=== PATIENT | female | born 1980 | race Caucasian/White ===

== ENCOUNTER 2021-09-08 04:49 | Emergency (ER) | payer BC, MEDICAID, SELFPAY ==
[2021-09-08 05:01] VITALS: BP 147/102; PULSE 102; RESP 18; TEMP 36.8; O2SAT 99; BMI 29.9
--- NOTE | 2021-09-08 05:16 | XRR_ITS ---
PROCEDURE INFORMATION: Exam: XR Chest Exam date and time: 09/08/2021 6:11 AM Age: 41 years old Clinical indication: Pain; Chest pressure; Additional info: Cp dizzy TECHNIQUE: Imaging protocol: Radiologic exam of the chest. Views: 1 view. COMPARISON: No relevant prior studies available. FINDINGS: Lungs: The lung parenchyma is clear. Pleural spaces: No pneumothorax. No pleural effusion. Heart/Mediastinum: The cardiomediastinal silhouette is within normal limits. Bones/joints: Unremarkable. XR/XR chest 1V portable [id number] IMPRESSION: No acute cardiopulmonary abnormality.
--- NOTE | 2021-09-08 05:16 | ECG_ITS ---
[facility] Test Date: 2021-09-08 Pat Name: Sara Dempsey Department: Room: Gender: Female Safety Risk Lead: : 1980 Requested By: Riley Parr Order Number: [id number] Kacy MD: Brit Ferris M.D. Measurements Intervals Chancellor Rate: 95 P: 77 TN: 167 QRS: 55 QRSD: 81 T: 33 QT: 333 QTc: 419 Interpretive Statements SINUS RHYTHM LOW QRS VOLTAGE IN PRECORDIAL LEADS [QRS DEFLECTION < 1.0 mV IN CHEST LEADS] No previous ECG available for comparison Electronically Signed On 09-08-2021 13:00:44 CDT by Brit Ferris M.D. [email or web address]
--- NOTE | 2021-09-08 05:19 | ED_ITS ---
HPI - Chest Pain General: Chief Complaint: Chest Pain Stated Complaint: dizzy Time Seen by Provider: 09/08/21 04:59 History of Present Illness: 41-year-old female who says she has been sick on and off for about a month. She has been coughing. No sputum production. No fever. She had a coughing fit this morning, developed significant chest pain, and became dizzy. Dizziness is now resolved. She still has chest pain. MD complaint: chest pain and other Onset (ago): hour(s) Prior episodes: Yes Onset: during rest Pain location: substernal Pain radiation: none Associated symptoms: Reports dyspnea and palpitations; Deny abdominal pain, diaphoresis, fever(s), leg edema, syncope or vomiting Review of Systems Const: Denies: fever(s) or diaphoresis ENMT: Denies: throat pain Card: Reports: chest pain and palpitations; Denies: syncope Resp: Reports: dyspnea GI: Denies: abdominal pain or vomiting Skin/Breast: Denies: rash Neuro: Reports: dizziness; Denies: headache(s) [facility] ED Female Reproductive History: Date of last menstrual period: 09/01/21 Physical Exam Const: COMMON NORMALS: no acute distress GENERAL APPEARANCE: cooperative and ill appearing HENMT: COMMON NORMALS: normocephalic, atraumatic and Normal external nose present HEAD & SCALP: normocephalic and atraumatic FACE & SINUS: normal facial exam and face symmetric NOSE: Normal external nose present and Normal nares present Eye: COMMON NORMALS: Equal, round and reactive pupils present and EOMs intact bilaterally PUPIL: Yes Equal, round and reactive pupils present Neck/C-Spine: GENERAL: Yes trachea midline Chest: CHEST: Yes Symmetrical chest wall rise Resp: COMMON NORMALS: normal respiratory effort, No use of accessory muscles and clear to auscultation bilaterally AUSCULTATION: clear to auscultation bilaterally Cardio: COMMON NORMALS: regular rate and regular rhythm RATE: regular rate RHYTHM: regular rhythm GI: COMMON NORMALS: Normal to inspection, nondistended, normoactive bowel sounds present, Soft to palpation and non-tender PALPATION: Yes Soft to palpation Extremity: COMMON NORMALS: normal to inspection Neuro: GAGE COMA SCALE: document GCS findings Gage coma scale eye opening: Spontaneous Gage coma scale verbal response: Orientated Gage coma scale motor response: Obey commands [place] coma scale total score: 15 Course Vital Signs: Vital signs: Vital Signs Temperature 98.2 F 09/08/21 05:01 Pulse Rate 105 H 09/08/21 05:41 Respiratory Rate 17 09/08/21 05:41 Blood Pressure 135/93 09/08/21 05:41 Pulse Oximetry 100 09/08/21 05:41 MDM - Chest Pain Medical Decision Making 41-year-old female with a cough on and off for a month. She denies any fever. Hemoglobin is 10. White blood cell count is 8. Troponin is 6. EKG shows sinus rhythm with normal axis and intervals. There is no ST change. The patient is satting 100% on room air. She has a cough. Her dizziness is resolved. Lab Data : 09/08/21 05:13 09/08/21 05:13 Laboratory Results WBC 8.3 10^3/uL (4.0-10.0) 09/08/21 05:13 RBC 3.85 10^6/uL (4.1-5.3) L 09/08/21 05:13 Hgb 10.2 g/dL (11.5-15.3) L 09/08/21 05:13 Hct 32.2 % (37.0-47.0) L 09/08/21 05:13 MCV 83.6 fl (81-99) 09/08/21 05:13 MCH 26.5 pg (28.0-34.0) L 09/08/21 05:13 MCHC 31.7 g/dL (30.0-36.0) 09/08/21 05:13 RDW 16.4 % (12.1-15.1) H 09/08/21 05:13 Plt Count 384 10^3/cmm (130-400) 09/08/21 05:13 MPV 11.8 fL (7.4-10.4) H 09/08/21 05:13 Neut % (Auto) 61.4 % 09/08/21 05:13 Lymph % (Auto) 29.4 % 09/08/21 05:13 Mineral % (Auto) 7.2 % 09/08/21 05:13 Eos % (Auto) 1.4 % 09/08/21 05:13 Baso % (Auto) 0.4 % 09/08/21 05:13 Neut # (Auto) 5.12 10^3/uL (1.8-7.7) 09/08/21 05:13 Lymph # (Auto) 2.5 10^3/uL (0.8-4.8) 09/08/21 05:13 Mineral # (Auto) 0.6 10^3/uL (0.2-0.9) 09/08/21 05:13 Eos # (Auto) 0.1 10^3/uL (0.0-0.8) 09/08/21 05:13 Baso # (Auto) 0.0 10^3/uL (0.0-0.1) 09/08/21 05:13 Nucleated RBC % (auto) 0 % 09/08/21 05:13 Nucleated RBCs # 0.0 /100WBC 09/08/21 05:13 Sodium 140 mmol/L (136-145) 09/08/21 05:13 Potassium 3.6 mmol/L (3.5-5.1) 09/08/21 05:13 Chloride 106 mmol/L (98-107) 09/08/21 05:13 Carbon Dioxide 22 mmol/L (22-29) 09/08/21 05:13 Anion Gap 15.6 (5-19) 09/08/21 05:13 BUN 15 mg/dL (6-20) 09/08/21 05:13 Creatinine 0.7 mg/dL (0.5-0.9) 09/08/21 05:13 GFR Calculation 93.2 mL/min (90-130) 09/08/21 05:13 Glucose 90 mg/dL (65-115) 09/08/21 05:13 Calculated Osmolality 290 mOsm/kg (285-295) 09/08/21 05:13 Calcium 9.0 mg/dL (8.5-10.5) 09/08/21 05:13 Total Bilirubin 0.2 mg/dL (0.15-1.2) 09/08/21 05:13 AST 20 U/L (0-32) 09/08/21 05:13 ALT 15 U/L (0-33) 09/08/21 05:13 Alkaline Phosphatase 96 IU/L (35-105) 09/08/21 05:13 Troponin T Baseline 6 ng/L (0-10) 09/08/21 05:13 Total Protein 7.4 g/dL (6.6-8.7) 09/08/21 05:13 Albumin 4.3 g/dL (3.5-5.2) 09/08/21 05:13 Globulin 3.1 g/dL (1.3-4.6) 09/08/21 05:13 HCG, Qual Negative (Negative) 09/08/21 05:13 Discharge Plan Discharge Patient Disposition: Home Clinical Impression: Chest pain, Bronchitis Condition: Stable Prescriptions: New methylprednisolone [Medrol (Silver)] 4 mg tablets,dose pack See Rx Instructions .ROUTE .COMPLEX Qty: 21 0RF Rx Instructions: orally per package directions doxycycline hyclate 100 mg tablet 100 mg PO BID 7 Days Qty: 14 0RF Discharge Orders: Discharge ED (Routine); Ordered 09/08/21 Ordered By: Riley Pinto Referrals: Herber Plata FNP [Primary Care Provider] - Activity Restrictions/Additional Instructions: Medications as directed. Return for fever despite 2-3 doses of antibiotics, worsening chest discomfort despite treatment, repeated episodes of syncope or passing out, shortness of breath, other concerning symptoms. Follow-up with your doctor this week. Coding Level of Care Code ED Finance Controller for [place] Fwd Exam Comprehensive
[2021-09-08 05:27] LABS: Basophils % 0.4 %; Eosinophils # 0.1 10^3/uL (0.0-0.8); Eosinophils % 1.4 %; Hematocrit 32.2 % (37.0-47.0); Hemoglobin 10.2 g/dL (11.5-15.3); Lymphocytes # 2.5 10^3/uL (0.8-4.8); Lymphocytes % 29.4 %; Mean Corpuscular HGB Conc 31.7 g/dL (30.0-36.0); Mean Corpuscular Hemoglobin 26.5 pg (28.0-34.0); Mean Corpuscular Volume 83.6 fl (81-99); Mean Platelet Volume 11.8 fL (7.4-10.4); Monocytes # 0.6 10^3/uL (0.2-0.9); Monocytes % 7.2 %; Neutrophils # 5.12 10^3/uL (1.8-7.7); Neutrophils % 61.4 %; Nucleated Red Blood Cells % 0 %; Platelet Count 384 10^3/cmm (130-400); Red Blood Count 3.85 10^6/uL (4.1-5.3); Red Cell Distribution Width 16.4 % (12.1-15.1); White Blood Count 8.3 10^3/uL (4.0-10.0)
[2021-09-08 05:38] LABS: HCG, Serum Qual Negative (Negative)
[2021-09-08 05:41] VITALS: BP 135/93; PULSE 105; RESP 17; O2SAT 100
[2021-09-08 05:45] LABS: Alanine Aminotransferase 15 U/L (0-33); Albumin Level 4.3 g/dL (3.5-5.2); Alkaline Phosphatase 96 IU/L (35-105); Anion Gap 15.6 (5-19); Aspartate Amino Transferase 20 U/L (0-32); Blood Urea Nitrogen 15 mg/dL (6-20); Carbon Dioxide 22 mmol/L (22-29); Chloride 106 mmol/L (98-107); Globulin 3.1 g/dL (1.3-4.6); Glomerular Filtration Rate 93.2 mL/min (90-130); Glucose 90 mg/dL (65-115); Osmolality Calculated 290 mOsm/kg (285-295); Potassium 3.6 mmol/L (3.5-5.1); Sodium 140 mmol/L (136-145); Total Bilirubin 0.2 mg/dL (0.15-1.2); Total Protein 7.4 g/dL (6.6-8.7)
[2021-09-08 05:46] LABS: Troponin(5th) Baseline 6 ng/L (0-10)
[2021-09-08] MEDS: sodium chloride 0.9% 1,000 ML 999 ML IV (06:00)
[2021-09-08] MEDS: LORazepam 2 mg/mL INJ 1 mL 1 MG IVP (06:00)
[2021-09-08 06:09] LABS: Add Urine Microscopic? NO; Charge for UA Resulting for Rev
[2021-09-08 06:13] LABS: Bilirubin Urine Neg (Negative); Blood Urine Neg (Negative); Glucose Urine UA Norm (Normal); Ketones Urine 1+ (Negative); Leukocyte Esterase Urine Negative (Negative); Nitrate Urine Negative (Negative); Protein Urine Neg (Negative); Urine Appearance Clear (CLEAR); Urine Color Yellow (Yellow); Urobilinogen Urine Norm (Negative); pH Urine 5 (5-7)
[2021-09-08 06:21] LABS: Amphetamines Screen Urine Positive (Negative); Barbiturates Screen Urine Negative (Negative); Benzodiazepines Screen Urine Negative (Negative); Cocaine Screen Urine Negative (Negative); Opiate Screen Urine Negative (Negative); PCP Screen Urine Negative (Negative); THC Screen Urine Positive (Negative)
[2021-09-08 06:59] VITALS: BP 135/93; PULSE 106; RESP 15; O2SAT 99
== END 2021-09-08 07:01 | disposition home or self-care (01) ==
PROVIDERS: Emergency Provider Emergency Medicine; PCP Nurse Practitioner Family
DX: R07.9 Chest pain, unspecified (principal); J40 Bronchitis, not specified as acute or chronic
CPT/HCPCS: 71045; 80053; 80306; 81003; 84484; 84703; 85025; 93005; 96361; 96374; 99285; J2060; J7030